=== PATIENT | male | born 1950 | race Caucasian/White ===

== ENCOUNTER → 2016-07-13 | Outpatient (CLI) | payer BC, OTHER | LOC: LAB 10:23 | PROVIDERS: ATTEND Urology | DX: C61 Malignant neoplasm of prostate (principal) | CPT/HCPCS: 36415; 84153 ==

== ENCOUNTER 2016-09-30 12:26 | Emergency (ER) | payer BC, OTHER ==
--- NOTE | 2016-09-30 12:45 | PDOC ---
Gen Adult / Medical Screen HPI - General Chief Complaint: General Medical Stated Complaint: got weak and diaphoretic Date Seen by Provider: 09/30/16 Time Seen by Provider: 12:30 Source: POSITIVE: Patient, Spouse Exam Limitations: POSITIVE: No limitations Nurse's Notes Reviewed & Considered: Yes - History of Present Illness Initial Comments: Patient comes in now with complaints of dizziness, lightheadedness, diaphoresis. Symptoms occurred as he was eating lunch today. He states that he has had some intermittent similar episodes associated with ingestion of food. Presently denies any fever or chills he did have a significant episode of diaphoresis during his period of weakness. He also had a sudden urge to defecate and went to the bathroom. There was no loss of bowel or bladder control. He denies any headache, chest pain, shortness of breath, no hematuria or dysuria, no rashes. His symptoms have almost completely resolved by the time he was seen here in the emergency department. Body Location Affected: REPORTS: Head Timing: REPORTS: Abrupt Duration: 1/2 hour Similar Symptoms Previously: Yes Recent Care Received: REPORTS: Denies Any Prior Injuries Related to Current Complaint?: No - Patient Home Medications Home Medications: Home Medications Aspirin [Aspir 81] 81 mg PO DAILY 04/18/12 Alprazolam 0.5 mg PO HS #30 tab 09/15/12 Atenolol 0.5 tab ORAL QD #45 tab 11/02/15 Indapamide 1 tab ORAL QD #90 tab 11/02/15 Terazosin HCl 1 cap ORAL QD #90 capsule 11/02/15 Lisinopril 0.5 tab ORAL QD #5 tab 12/06/15 Cyclobenzaprine HCl [Flexeril] 10 mg PO TID PRN #20 tab 12/12/15 Potassium Chloride [Klor-Con] 40 meq PO BID 09/30/16 - Patient Allergies Allergies/Adverse Reactions: Allergies Allergy/AdvReac Type Severity Reaction Status Date / Time spironolactone Allergy Swelling Verified 09/30/16 13:22 Past Medical History - heen HEENT History: Denies History Cardiovascular History: Hypertension Respiratory History: Denies History Gastrointestinal History: Denies History Genitourinary History: Kidney Stones Additional Genitourinary History: BPH Endocrine History: Denies History Musculoskeletal History: Arthritis Prosthesis or Implant: No Additional Musculoskeletal History: RIGHT SHOULDER PAIN/ RCT Neurological History: Migraines Blood Disorders: Denies History Psychiatric History: Denies History History of Sexually Transmitted Diseases: No Cancer History: Other (please comment) History of MDRO: No History of Other Communicable Diseases: No Alcohol Use: Rarely Substance Use Type: None Previous Surgical History: Yes Type / Date of Surgery: VASECTOMY / colonoscopy Anesthesia Reactions: No Malignant Hyperthermia: No Significant Family History: Heart disease, Cancer, Diabetes, Hypertension ROS - Limitations ROS Limitations: No Limitations Constitution: REPORTS: Diaphoresis, Weakness Cardiovascular: REPORTS: Denies Cardiac Symptoms Respiratory: REPORTS: Denies Resp Symptoms Neurological: REPORTS: Confusion, Difficulty Walking, Weakness Gastrointestinal: REPORTS: Denies GI Symptoms Endocrine: REPORTS: Denies Symptoms Musculoskeletal: REPORTS: Denies MS Symptoms Genitourinary: REPORTS: Denies Symptoms Eyes: REPORTS: Denies Symptoms ENT: REPORTS: Denies Symptoms Skin: REPORTS: Denies Skin Symptoms Lympathic: REPORTS: Denies Lympathic Symptoms Immunologic: POSITIVE: Denies Symptoms Psychiatric: POSITIVE: Confusion Gen Adult/Medical Screen Exam - General Appearance General Appearance: POSITIVE: Alert, Cooperative, No Acute Distress, No Evidence of Trauma - HEENT HEENT: POSITIVE: Head Inspection Nml, Eyes Inspection Nml, Ears Inspection Nml, Nose Inspection Nml, Oral/Dental Inspect. Nml, Pharynx Inspect. Nml, PERRL, EOMI - Pupils Pupil Size: 5 mm: Bilateral - Neck Neck: POSITIVE: Normal Inspection, Thyroid Normal - Respiratory Respiratory: POSITIVE: No Respiratory Distress, Breath Sounds Normal, Chest Non- Tender - Cardiovascular Cardiovascular: POSITIVE: Regular Rate & Rhythm, No Murmur, No Gallop, PMI Normal - Abdomen Abdomen: Soft: (All Quadrants), Normal Bowel Sounds: (All Quadrants), Denies Tenderness: (All Quadrants) - Back Back: POSITIVE: Normal Inspection - Neurological / Psychological Mental Status: POSITIVE: Mood Normal, Affect Normal Orientation: POSITIVE: Oriented x 3 - Skin Skin: POSITIVE: Normal Color, Warm, Dry, No Rash - Extremities Extremity: Non-Tender: (All Extremities), Normal ROM: (All Extremities), Normal Inspection: (All Extremities), Pelvis Stable: (All Extremities) Procedures - Laceration/Wound Repair Did patient have a laceration repair: No Gen Adlt/Medical Scrn Progress - Results Reviewed by me Xrays/CTs/US Reviewed by me: Yes Discussed with Radiologist: Yes Lab Results Reviewed: Yes Lab Results:: Laboratory Results 09/30/16 09/30/16 Range/Units 12:52 14:30 WBC 7.99 (4.8-10.8) 10^3/uL RBC 4.94 (4.70-6.10) 10^6/uL Hgb 15.2 (14.0-18.0) g/dL Hct 43.5 (42.0-52.0) % MCV 88.1 (80-90) FL MCH 30.8 (27-31) PG MCHC 34.9 (33-37) g/dL RDW Std Deviation 39.9 (39-50) fL RDW Coeff of [place] 12.6 (11.5-14.5) % Plt Count 160 (140-350) 10*3/uL MPV 10.5 (7.4-12.2) FL Immature Gran % (Auto) 0.1 (0-5) % Neut % (Auto) 78.2 (50-80) % Lymph % (Auto) 13.3 (10-50) % [place] % (Auto) 7.0 (5-15) % Eos % (Auto) 1.3 (0-8) % Baso % (Auto) 0.1 (0-1) % Immature Gran # (Auto) 0.01 10*3/UL Neut # (Auto) 6.25 10*3/UL Lymph # (Auto) 1.06 10*3/uL [place] # (Auto) 0.56 (0.3-0.8) 10*3/UL Eos # (Auto) 0.10 10*3/UL Baso # (Auto) 0.01 10*3/UL WBC Morphology Comment Normal morphology (NORM) Plt Morphology Comment Normal morphology (NORM) RBC Morph Comment Normal morphology (NORM) D-Dimer < 0.19 (0.00-0.59) mg/L Sodium 136 (135-145) meq/L Potassium 2.9 L (3.8-5.2) meq/L Chloride 99 (98-112) meq/L Carbon Dioxide 28 (23-33) meq/L Anion Gap 9 (5-20) BUN 20 (7-22) mg/dL Creatinine 0.8 (0.70-1.50) mg/dL Estimated GFR > 60 (>60 ml/min/1.73m(2)) BUN/Creatinine Ratio 25.00 H (6-20) Glucose 148 H (78-110) mg/dL Mean Blood Glucose 104.809 mg/dL Hemoglobin A1c 5.73 (4.2-6.0) % Calculated Osmolality 287.0 (267-292) mOsm/kg Calcium 9.2 (8.7-10.7) mg/dL Magnesium 1.7 (1.6-2.4) mg/dL Total Bilirubin 1.2 (0.3-1.2) mg/dL AST 29 (21-57) IU/L ALT 33 (21-72) IU/L Alkaline Phosphatase 60 (38-126) IU/L Troponin I < 0.012 (< 0.040) ng/mL Total Protein 6.1 (6.1-8.0) g/dL Albumin 3.7 (3.5-4.8) g/dL Globulin 2.4 L (2.50-4.10) g/dL Albumin/Globulin Ratio 1.50 (1.3-2.0) mg/g TSH 2.92 (0.2700-4.2000) uIU/mL Free T4 1.08 (0.93-1.71) ng/dL Ur Collection Type Clean catch urine Urine Color Yellow Urine Clarity Clear (CLEAR) Urine pH 7.0 (5.0-8.5) Ur Specific [place] 1.015 (1.005-1.030) U Specif Grav (Refrac) Pending Urine Protein Trace (NEG) mg/dl Urine Glucose (UA) Negative (NEG) mg/dL Urine Ketones Negative (NEG) Urine Occult Blood Negative (NEG) Urine Nitrate Negative (NEG) Urine Bilirubin Negative (NEG) Urine Urobilinogen 1.0 (0.2) EU/dL Ur Leukocyte Esterase Negative (NEG) Ur Culture Indicated? Culture not set Urine Opiates Screen Negative (NEG) Ur Buprenorphine Negative (NEG) Ur Oxycodone Screen Negative (NEG) Urine Methadone Screen Negative (NEG) Ur Propoxyphene Screen Negative (NEG) Barbiturate Screen Negative (NEG) U Tricyclic Antidepress Negative (NEG) Phencyclidine Screen Negative (NEG) Amphetamines Screen Negative (NEG) U Methamphetamines Scrn Negative (NEG) Benzodiazepines Screen Negative (NEG) Cocaine Screen Negative (NEG) U Marijuana (THC) Screen Negative (NEG) Serum Alcohol < 10 (0-10) mg/dL EKG Interpretation:: POSITIVE: Abnormal EKG (Sinus bradycardia) - Patient's Progress Pain Medication Addressed: POSITIVE: Not Applicable Re-Examine Time: 15:04 Status: POSITIVE: Improved MDM / ED Course: Patient was evaluated here in the emergency department, an IV started, blood drawn and sent to the lab for studies, EKG and radiographic studies were obtained. Findings: CBC is unremarkable. Comprehensive metabolic panel shows a hypokalemia of 2.9. Thyroid is within normal limits. CT of his head is negative for acute intracranial abnormalities. Chest x-ray shows no acute cardiopulmonary decompensation. EKG per my interpretation shows a sinus bradycardia. Assessment: Near syncope. Differential includes hypokalemia, cardiac arrhythmia , and less likely vasovagal. Plan: Discharge home, call primary care physician in the morning for follow-up to consider Holter monitor. Next ER course: Patient received a liter of normal saline, Zofran, and meclizine. His symptoms were resolved at the time of discharge. Patient Care Time - Estimated PCT Patient Care Time (In Minutes): 45 Vital Signs - VS Reviewed Vital Signs Reviewed: Yes Discharge Clinical Impression: Pre-syncope Discharge Disposition: Discharged to Home Condition: Stable Patient Instructions Given at Discharge: Syncope (ED)
[2016-09-30] MEDS ORDERED: MECLIZINE 25 MG CHEWABLE TABLET PO ONE (12:47)
[2016-09-30] MEDS ORDERED: Sodium Chloride 0.9% 1,000 ML PRIMARY IV ONE (12:47)
[2016-09-30] MEDS ORDERED: ONDANSETRON 4 MG/2 ML VIAL IVP ONE (12:47)
[2016-09-30 13:07] LABS: BASOPHILS # (AUTO) 0.01 10*3/UL; BASOPHILS % (AUTO) 0.1 % (0-1); EOSINOPHILS % (AUTO) 1.3 % (0-8); HEMATOCRIT 43.5 % (42.0-52.0); HEMOGLOBIN 15.2 g/dL (14.0-18.0); LYMPHOCYTES # (AUTO) 1.06 10*3/uL; MEAN CORPUSCULAR HEMOGLOBIN 30.8 PG (27-31); MEAN CORPUSCULAR HGB CONC 34.9 g/dL (33-37); MEAN CORPUSCULAR VOLUME 88.1 FL (80-90); MEAN PLATELET VOLUME 10.5 FL (7.4-12.2); MONOCYTES # (AUTO) 0.56 10*3/UL (0.3-0.8); NEUTROPHILS # (AUTO) 6.25 10*3/UL; NEUTROPHILS % (AUTO) 78.2 % (50-80); RED BLOOD COUNT 4.94 10^6/uL (4.70-6.10)
[2016-09-30 13:08] LABS: PLATELET MORPHOLOGY COMMENT NORMAL MORPHOLOGY (NORM); RBC MORPHOLOGY COMMENT NORMAL MORPHOLOGY (NORM); WBC MORPHOLOGY COMMENT NORMAL MORPHOLOGY (NORM)
[2016-09-30 13:15] LABS: BLOOD UREA NITROGEN 20 mg/dL (7-22); CALCIUM 9.2 mg/dL (8.7-10.7); EST GLOMERULAR FILTRATION > 60 (>60 ml/min/1.73m(2)); MAGNESIUM 1.7 mg/dL (1.6-2.4); SERUM ALBUMIN 3.7 g/dL (3.5-4.8)
[2016-09-30 13:22] LABS: HEMOGLOBIN A1C 5.73 % (4.2-6.0)
[2016-09-30 13:39] LABS: FREE T4 (FREE THYROXINE) 1.08 ng/dL (0.93-1.71)
[2016-09-30 14:38] LABS: BILIRUBIN,URINE NEGATIVE (NEG); COLOR,URINE YELLOW; GLUCOSE, URINE (UA) NEGATIVE (NEG); NITRATE,URINE NEGATIVE (NEG); OCCULT BLOOD,URINE NEGATIVE (NEG); PROTEIN,URINE TRACE mg/dl (NEG)
[2016-09-30 14:39] LABS: CLARITY,URINE CLEAR (CLEAR); URINE SAMPLE TYPE CLEAN CATCH URINE
[2016-09-30 14:48] LABS: AMPHETAMINE SCREEN NEGATIVE (NEG); CANNABINOID SCREEN,URINE NEGATIVE (NEG); COCAINE SCREEN NEGATIVE (NEG); METHADONE URINE SCREEN NEGATIVE (NEG); METHAMPHETAMINES SCREEN,URINE NEGATIVE (NEG); OPIATE SCREEN,URINE NEGATIVE (NEG)
[2016-09-30 16:51] VITALS: TEMP 96
[2016-09-30 16:53] VITALS: RESP 16
--- NOTE | 2016-09-30 16:58 | EKG ---
[address] [place] [address] Measurements Intervals [place] Rate: 46 P: 59 NV: 212 QRS: -50 QRSD: 104 T: 58 QT: 438 QTc: 395 Interpretive Statements SINUS BRADYCARDIA WITH FIRST DEGREE AV BLOCK LEFT ANTERIOR FASCICULAR BLOCK [QRS AXIS <= -45, QR IN I, RS IN II] INTERPRETATION BASED ON A DEFAULT AGE OF 40 YEARS Compared to ECG 05/12/2014 10:02:42 Left anterior fascicular block now present Left-axis deviation no longer present Electronically Signed On 10-01-16 12:18:55 MDT by Emigdio Root MD [email or web address]
--- NOTE | 2016-10-01 06:45 | DI ---
[facility] CHEST X-RAY, 09/30/2016 12:47 PM : Clinical History: Dizziness. Diaphoresis. Previous Exam: 09/21/2008. There is no acute soft tissue or bony abnormality. Heart size is normal. Lungs are clear. Mediastinal structures are normal. There are no pulmonary nodules. Reading: Normal chest x-ray. There has been no interval change.
[2016-10-01 18:47] LABS: URINE SPECIFIC GRAVITY - MAN 1.015
== END 2016-09-30 15:30 | disposition home or self-care (01) ==
LOC: ER 12:26
DX: R55 Syncope and collapse (principal); R42 Dizziness and giddiness; I10 Essential (primary) hypertension
CPT/HCPCS: 70450; 71010; 80053; 80305; 80320; 81003; 83036; 83735; 84439; 84443; 84484; 85025; 85379; 93005; 93010; 96361; 96374; 99284; J2405; J7030

== ENCOUNTER → 2016-10-04 | Outpatient (CLI) | payer BC, OTHER ==
--- NOTE | 2016-10-08 16:51 | HOLTER ---
[facility] [place] Interpretive Statements No Diary returned Forty eight hour holter done for syncopy with 41 hours and 45 minutes scanned. Patient was asymptomatic during study and no diary kept. There were [id number] beats recorded with [id number] being normal. The average heart rate was 54 with maximum sinus rate of 102 and minimum rate of 35 during sleep. There were no pauses greater than 1.78 seconds which occurred with sinus bradycardia. There were 159 PACs with 88 singlets, 13 pairs, and 11 runs to rate of 119 for 3-6 beats. There were 267 VPCs with one brief run of ventricular trigeminey and no VT. No atrial fibrillation was seen. Sinus tachycardia to rates of 102 were noted during the day, however no activity was recorded. No diagnostic ST-T wave changes were noted. IMP: Abnormal, asymptomatic holter study, with occasional sinus bradycardia during sleep to 35 with occasional PACs and and brief runs of SVT to rates of 119. There were isolated VPCs with no VT with no prolonged pauses or AV block. Electronically Signed On 10-09-16 20:11:25 MDT by Eliezer Youssef [email or web address]
== END ==
LOC: EKG 14:46
PROVIDERS: ATTEND Nurse Practitioner Family
DX: R00.1 Bradycardia, unspecified (principal); I10 Essential (primary) hypertension; F17.220 Nicotine dependence, chewing tobacco, uncomplicated
CPT/HCPCS: 93225; 93226; 93227

== ENCOUNTER → 2016-11-01 | Outpatient (CLI) | payer BC, OTHER ==
[2016-11-01 08:19] LABS: BASOPHILS # (AUTO) 0.03 10*3/UL; BASOPHILS % (AUTO) 0.6 % (0-1); EOSINOPHILS # (AUTO) 0.18 10*3/UL; EOSINOPHILS % (AUTO) 3.7 % (0-8); HEMATOCRIT 46.5 % (42.0-52.0); HEMOGLOBIN 16.2 g/dL (14.0-18.0); MEAN CORPUSCULAR HGB CONC 34.8 g/dL (33-37); MEAN CORPUSCULAR VOLUME 88.9 FL (80-90); MEAN PLATELET VOLUME 9.6 FL (7.4-12.2); MONOCYTES # (AUTO) 0.47 10*3/UL (0.3-0.8); MONOCYTES % (AUTO) 9.7 % (5-15); NEUTROPHILS # (AUTO) 3.16 10*3/UL; RED BLOOD COUNT 5.23 10^6/uL (4.70-6.10)
[2016-11-01 08:20] LABS: PLATELET MORPHOLOGY COMMENT NORMAL MORPHOLOGY (NORM); RBC MORPHOLOGY COMMENT NORMAL MORPHOLOGY (NORM); WBC MORPHOLOGY COMMENT NORMAL MORPHOLOGY (NORM)
[2016-11-01 08:41] LABS: BLOOD UREA NITROGEN 19 mg/dL (7-22); BUN/CREATININE RATIO 27.14 (6-20); CALCIUM 9.2 mg/dL (8.7-10.7); CHOL/HDL RATIO 2.75 RATIO (0-4.0); EST GLOMERULAR FILTRATION > 60 (>60 ml/min/1.73m(2)); HDL CHOLESTEROL 58 mg/dL (40-150); SERUM CHOLESTEROL 160 mg/dL (120-200)
== END ==
LOC: LAB 08:03
PROVIDERS: ATTEND Nurse Practitioner Family
DX: Z00.00 Encounter for general adult medical examination without abnormal findings (principal)
CPT/HCPCS: 36415; 80053; 80061; 84443; 85025

== ENCOUNTER → 2016-12-26 | Outpatient (CLI) | payer OTHER | LOC: MMPC 10:00 | PROVIDERS: ATTEND Nurse Practitioner Family | DX: I10 Essential (primary) hypertension (principal); G47.33 Obstructive sleep apnea (adult) (pediatric) | CPT/HCPCS: 99213; G0463 ==